=== PATIENT | male | born 1945 | race Hispanic/Latino ===

== ENCOUNTER 2017-09-05 11:12 | Day surgery (SDC) | payer MEDICARE ==
[~2017-09-05 11:12] MED LIST: IOPIDINE ONE; MYDRIACYL ONE; NEOFRIN ONE
[2017-09-05] MEDS ORDERED: MYDRIACYL OD ONE (11:39)
[2017-09-05] MEDS ORDERED: NEOFRIN OD ONE (11:39)
[2017-09-05] MEDS ORDERED: IOPIDINE OD ONE ×2 (11:39→12:25)
[2017-09-05 12:36] VITALS: BP 130/79
== END 2017-09-05 11:13 | disposition home or self-care (01) ==
LOC: OR 11:12
PROVIDERS: ATTEND Specialist
DX: H26.491 Other secondary cataract, right eye (principal); G47.30 Sleep apnea, unspecified; M19.90 Unspecified osteoarthritis, unspecified site; Z87.891 Personal history of nicotine dependence; Z98.890 Other specified postprocedural states; Z99.89 Dependence on other enabling machines and devices; Z85.72 Personal history of non-Hodgkin lymphomas; Z88.2 Allergy status to sulfonamides

== ENCOUNTER 2017-09-12 11:12 | Day surgery (SDC) | payer MEDICARE ==
[2017-09-12 12:13] VITALS: BP 115/69
[2017-09-12] MEDS ORDERED: MYDRIACYL OU ONE ×2 (12:18→12:54)
[2017-09-12] MEDS ORDERED: IOPIDINE OU ONE ×2 (12:18→12:54)
[2017-09-12] MEDS ORDERED: NEOFRIN OU ONE ×2 (12:18→12:54)
[2017-09-12] MEDS ORDERED: MYDRIACYL ONE (13:04)
[2017-09-12] MEDS ORDERED: IOPIDINE ONE (13:04)
[2017-09-12] MEDS ORDERED: AK-Dilate ONE (13:04)
== END 2017-09-12 13:29 | disposition home or self-care (01) ==
LOC: OR 11:12
PROVIDERS: ATTEND Specialist
DX: H26.492 Other secondary cataract, left eye (principal); G47.30 Sleep apnea, unspecified; N40.0 Benign prostatic hyperplasia without lower urinary tract symptoms; M19.90 Unspecified osteoarthritis, unspecified site; Z85.72 Personal history of non-Hodgkin lymphomas; Z88.2 Allergy status to sulfonamides; Z99.89 Dependence on other enabling machines and devices; Z98.890 Other specified postprocedural states; Z87.891 Personal history of nicotine dependence